=== PATIENT | female | born 1985 | race Caucasian/White ===

== ENCOUNTER 2024-01-18 12:47 | Emergency (ER) | payer BC, SELFPAY ==
[2024-01-18 12:52] VITALS: BP 133/81
--- NOTE | 2024-01-18 13:43 | ED.GENMED ---
History of Present Illness
General
Chief Complaint: Musculo-Skeletal Complaint
Source: patient
Exam Limitations: none
Time Seen by Provider: 01/18/24 13:07
Nursing documentation reviewed up to this point in time: agreed with
Travel History
Have you had any contact with someone who has COVID-19?: No
Do you have any symptoms of coronavirus? Fever > 100 degrees, chills, cough, shortness of breath, sore throat, loss of taste or smell, muscle aches, or headache?: No
History of Present Illness
History of Present Illness:
Going to discharge and 38-year-old female presenting to the emergency department today with concerns of left ankle pain after twisting her ankle at a wedding last night while wearing high heels. Ongoing discomfort with ambulation today. Has no
swelling to the medial aspect of the ankle as well. Denies any breaks in the skin denies any additional trauma no head trauma not on blood thinners.
Review of Systems
Review of Systems
Allergies reviewed?: Yes
All Other Systems: ROS reviewed and negative except as documented in HPI and ROS
Phy Exam
Physical Exam
Physical Exam:
GENERAL: Alert , in no apparent distress
EYE: pupils equal and reactive
NECK: Supple, no significant adenopathy.
ENT: o/p clr, mmm.
CARDIAC: Regular rate and rhythm .
LUNGS: Clear breath sounds bilaterally, no acute respiratory distress, no wheezes/rales/rhonchi
ABDOMEN: Soft, without focal tenderness, no r/g, no cvat
NEUROLOGICAL: Alert and oriented, no focal neuro deficits
SKIN: Warm and dry, skin intact.
MUSCULOSKELETAL: Swelling to left ankle medial into the medial malleolus good range of motion no laxity no tenderness throughout the remainder of the midfoot forefoot or toes or tib-fib, well perfused.
PSYCH: Normal and appropriate interaction.
Course
Orders/Labs/Results
Orders:
Orders
01/18/24 12:55
Ankle, left 3 view CR [CR Ankle - Left Min 3 Views ] Urgent
Comment:
Reason For Exam: pain, swelling
01/18/24 13:40
boot [Ortho Boot Left- Treatment] ONCE
Short or tall?: Tall
Vital Signs
Initial and Last Documented VS:
Initial Vital Signs
Temp Pulse Resp BP Pulse Ox
97.6 F 104 20 133/81 97
01/18/24 12:52 01/18/24 12:52 01/18/24 12:52 01/18/24 12:52 01/18/24 12:52
Last Documented Vital Signs
Temp Pulse Resp BP Pulse Ox
97.6 F 104 20 133/81 97
01/18/24 12:52 01/18/24 12:52 01/18/24 12:52 01/18/24 12:52 01/18/24 12:52
MDM/Problems Addressed
MDM/Problems Addressed:
38-year-old female presenting to the emergency department today with concerns of left ankle discomfort. Tenderness mainly to the medial malleolus. X-ray performed that does not show evidence of fracture patient with likely sprain. Plan for
symptomatic treatment otherwise close follow-up as needed. Return precautions given.
*Critical Care Note
Total Time (30-74mins, 75-104mins- exclusive of procedures): Not Applicable
ED Attending Note
-
Portions of this chart may have been created with voice recognition software.� Occasional wrong word or��sound alike� substitutions may have occurred due to the inherent limitations of voice recognition software.
Discharge Plan
Departure
Patient Disposition: Home (Routine Discharge)
Date of Disposition: 01/18/24
Time of Disposition: 13:51
Patient with high blood pressure during this ER visit?: No
Condition: Good
Covid-19: Not Applicable
Discharge Problem:
Ankle pain, left
Instructions: Ankle Sprain ED
Referrals:
Dave Dooley DPM [Active] - Follow up in 5-7 days
Discharge Date and Time
Print Language: SWEDISH
== END 2024-01-18 14:20 | disposition home or self-care (01) ==
LOC: EMR 12:47
PROVIDERS: EMERGENCY PHYSICIAN Emergency Medicine
DX: S99.912A Unspecified injury of left ankle, initial encounter (principal); M25.572 Pain in left ankle and joints of left foot; X50.1XXA Overexertion from prolonged static or awkward postures, initial encounter; Y92.89 Other specified places as the place of occurrence of the external cause
CPT/HCPCS: 99283; 73610